=== PATIENT | male | born 1995 | race Caucasian/White ===

== ENCOUNTER 2016-07-09 16:39 | Emergency (ER) | payer OTHER ==
[~2016-07-09] VITALS: Ht 190.5 cm; Wt 77.1 kg
[2016-07-09 16:47] VITALS: BP 135/79
--- NOTE | 2016-07-09 17:57 | ED HAND/WRIST INJURY COMPLAINT ---
See Addendum History of Present Illness General Chief Complaint: Hand or Wrist Injury Stated Complaint: RT FINGER INJURY AT WORK Source: patient Exam Limitations: no limitations Vital Signs & Intake/Output Vital Signs & Intake/Output Vital Signs Date Time Temp Pulse Resp B/P Pulse O2 O2 Flow FiO2 Ox Delivery Rate 07/09 1647 97.7 88 20 135/79 98 Room Air Room Air Allergies Coded Allergies: NO KNOWN ALLERGIES (10/15/11) Triage Note: PT TO ED S/P "I SLICED BY KNUCKLE AT WORK". BANDAIDE INTACT TO LEFT INDEX FINGER. Triage Nurses Notes Reviewed? yes Duration: hour(s):, constant, continues in ED Timing: recent history Injury Environment: work No Modifying Factors: none HPI: 20-year-old male comes into the emergency room for further evaluation of laceration to right index finger. Patient cut it on a piece of metal at work earlier today around 11 AM. Last tetanus shot unknown. Denies any numbness or tingling. Denies any other associated symptoms at this time. Patient comes into emergency room for further evaluation. (GAMLA BLACKMON) Past History Travel History Traveled to [place] past 21 day No Medical History Any Pertinent Medical History? see below for history Neurological: NONE EENT: NONE Cardiovascular: NONE Respiratory: NONE Gastrointestinal: NONE Hepatic: NONE Renal: NONE Musculoskeletal: NONE Psychiatric: NONE Endocrine: NONE Blood Disorders: NONE Cancer(s): NONE MANAGER MEAT/Reproductive: NONE Surgical History Surgical History: non-contributory Psychosocial History What is your primary language Ethiopian Tobacco Use: Never used ETOH Use: denies use Illicit Drug Use: denies illicit drug use Family History Hx Contributory? No (GAMAL BLACKMON) Review of Systems Review of Systems Constitutional: Reports: no symptoms. EENTM: Reports: no symptoms. Respiratory: Reports: no symptoms. Cardiovascular: Reports: no symptoms. GI: Reports: no symptoms. Genitourinary: Reports: no symptoms. Musculoskeletal: Reports: see HPI. Skin: Reports: see HPI. Neurological/Psychological: Reports: no symptoms. Hematologic/Endocrine: Reports: no symptoms. Immunologic/Allergic: Reports: no symptoms. All Other Systems: Reviewed and Negative (GAMAL BLACKMON) Physical Exam Physical Exam General Appearance: well developed/nourished, mild distress Head: atraumatic Eyes: Bilateral: normal appearance. Ears, Nose, Throat: normal ENT inspection, hearing grossly normal Neck: normal inspection Cardiovascular/Respiratory: no respiratory distress Back: normal inspection Hand Left: normal inspection Hand Right: 2nd finger, superficial laceration over knuckle, skin well approximated, no active bleeding, Neurologic/Tendon: normal sensation, normal motor functions, normal tendon functions, responds to pain, no evidence tendon injury, no pulse deficit Skin: intact, normal color, warm/dry Lymphatic: no anterior cervical monika (GAMAL BLACKMON) Progress Differential Diagnosis: abscess, cellulitis, contusion, dislocation, fracture, gout, paronychia, septic arthritis, tenosynovitis Plan of Care: Current Medications Sig/Eliud Start time Last Medication Dose Stop Time Status Admin Tetanus/Diphtheria 0.5 ML ONCE ONE 07/09 1800 UNVr Toxoids Adsorbed 07/09 1801 (Decava) Departure Departure Disposition: HOME OR SELF CARE Condition: Stable Clinical Impression Primary Impression: Finger laceration Referrals: ROMY JONAS,SIDNEY Horta (PCP/Family) Additional Instructions: Stay in splint for 10 days. Change dressing every other day. Try not to bend the finger. Watch for signs of infection such as redness swelling discharge fever chills. Departure Forms: Customer Survey Employee Industrial Accident General Discharge Information (GAMAL BLACKMON) PA/DISHWASHER PREPARER Co-Sign Statement Statement: ED Attending supervision documentation- [] I saw and evaluated the patient. I have also reviewed all the pertinent lab results and diagnostic results. I agree with the findings and the plan of care as documented in the PA's/DISHWASHER PREPARER's documentation. [X] I have reviewed the ED Record and agree with the PA's/DISHWASHER PREPARER's documentation. [] Additions or exceptions (if any) to the PAs/DISHWASHER PREPARER's note and plan are summarized below: [] (ROLANDO MATHIAS DO) Procedures Laceration/Wound Repair Progress: superficial laceration over right index finger, skin well approximated, no active bleeding, no separation of skin, irrigated with peroxide and saline, Dermabond use, dry dressing, finger splint placed, patient tolerated procedure well, (GAMAL BLACKMON)
== END 2016-07-09 18:23 ==
LOC: ERH 16:39
DX: S61.210A Laceration without foreign body of right index finger without damage to nail, initial encounter (principal); W45.8XXA Other foreign body or object entering through skin, initial encounter
CPT/HCPCS: 90471; 90714

== ENCOUNTER 2016-08-20 16:07 | Emergency (ER) | payer OTHER ==
[~2016-08-20] VITALS: Ht 190.5 cm; Wt 77.1 kg
--- NOTE | 2016-08-20 17:21 | ED GI/GU/ABDOMINAL COMPLAINT ---
History of Present Illness General Chief Complaint: Abdominal Pain/Flank Pain Stated Complaint: MID ABD PAIN.. Source: patient Exam Limitations: no limitations Vital Signs & Intake/Output Vital Signs & Intake/Output Vital Signs Date Time Temp Pulse Resp B/P Pulse O2 O2 Flow FiO2 Ox Delivery Rate 08/20 1923 95.7 83 16 128/74 100 Room Air 08/20 1754 Room Air Room Air 08/20 1632 99.3 84 18 113/72 95 Room Air Allergies Coded Allergies: NO KNOWN ALLERGIES (10/15/11) Reconcile Medications Ondansetron HCl (Zofran) 4 MG TABLET 1 TAB PO Q6-8P PRN NAUSEA Triage Note: RECEIVED 20 YO MALE SENT BY DR BONNER FOR R/O APPENDICITIS. PT SENT FOR U/S. PT REPORTS MID TO LOWER ABDOMINAL PAIN SINCE THURSDAY, + NAUSEA. WBC 12.6 Triage Nurses Notes Reviewed? yes Timing: recent history Severity Numbers: 3 Location: right lower quadrant Radiation: no radiation Activities at Onset: none HPI: Patient is a 20-year-old male with an unremarkable past medical history presents to emergency room stating that 4 days ago patient had a gradual onset of generalized abdominal pain and was pain significantly worsened today or patient has now become nauseous Patient's pain currently is periumbilical with radiation to the right lower quadrant patient was seen by administrative assistant data entry and was advised to present to emergency room for rule out appendicitis the state the patient's white blood cell count was 12.6 thousand. Patient states that eating and drinking makes symptoms worse. Patient does state that he is a significant every other day and said user for headaches. \ last bowel movement was today no blood no melena noted. Past History Travel History Traveled to [place] past 21 day No Medical History Any Pertinent Medical History? none Neurological: NONE EENT: NONE Cardiovascular: NONE Respiratory: NONE Gastrointestinal: NONE Hepatic: NONE Renal: NONE Musculoskeletal: NONE Psychiatric: NONE Endocrine: NONE Blood Disorders: NONE Cancer(s): NONE PUBLISHER ASSISTANT/Reproductive: NONE Tetanus Vaccine: 07/09/16 Surgical History Surgical History: non-contributory Psychosocial History What is your primary language [place] Tobacco Use: Never used Family History Hx Contributory? No Review of Systems Review of Systems Constitutional: Reports: no symptoms. EENTM: Reports: no symptoms. Respiratory: Reports: no symptoms. Cardiovascular: Reports: no symptoms. GI: Reports: see HPI, abdominal pain. Genitourinary: Reports: no symptoms. Musculoskeletal: Reports: no symptoms. Skin: Reports: no symptoms. Neurological/Psychological: Reports: no symptoms. Hematologic/Endocrine: Reports: no symptoms. Immunologic/Allergic: Reports: no symptoms. All Other Systems: Reviewed and Negative Physical Exam Physical Exam General Appearance: no apparent distress, alert Gastrointestinal: normal bowel sounds, soft, MILD RIGHT LOWER QUADRANT POINT TENDERNESS NO REBOUND TENDERNESS NO RIGHT UPPER QUADRANT PAIN NO PERITONEAL SIGNS Comments: Well-developed well-nourished person in no acute distress HEENT: Normal EENT exam, Neck: Supple, no lymphadenopathy, normal range of motion without pain or tenderness Back: Nontender, no CVA tenderness. Cardiovascular: Regular rate and rhythms no murmurs rubs or gallops, normal JVP Respiratory: Chest nontender. No respiratory distress.breath sounds clear to auscultation bilaterally Abdomen: Soft, nondistended, no appreciable organomegaly. Normal bowel sounds. No ascites Extremity: No edema, no calf tenderness to palpation, normal and equal pulses. Neuro: Alert oriented x3, motor sensory normal, Skin: No appreciable rash on exposed skin, skin is warm and dry. Psych: Mood and affect is normal, memory and judgment is normal. Core Measures ACS in differential dx? No Severe Sepsis Present: No Septic Shock Present: No Progress Differential Diagnosis: AAA, AMI, appendicitis, biliary colic, bowel obstruction , colon cancer, cholecystitis, diverticulitis, epididymitis, esophageal varices, gastritis, hepatitis, hernia, hemorrhoids, ischemic bowel, inflamm bowel dis, orchitis, pancreatitis, prostatitis, peptic ulcer, PUD/GERD, perforated viscous, pyelonephritis, SBO, testicular torsion, ureterolithiasis, urinary retention, urethritis, UTI/pyelo Plan of Care: Orders Procedure Date/time Status LIPASE 08/20 1735 Complete LACTIC ACID 08/20 173 Complete COMPREHENSIVE METABOLIC PANEL 08/20 1734 Complete CBC WITHOUT DIFFERENTIAL 08/20 1734 Complete AMYLASE 08/20 173 Complete Laboratory Tests 08/20/16 2035: Lactic Acid Cancelled 08/20/16 1750: Anion Gap 12, Estimated GFR > 60, BUN/Creatinine Ratio 13.3, Glucose 84, Lactic Acid 0.6 L, Calcium 9.7, Total Bilirubin 0.9, AST 21, ALT 35, Alkaline Phosphatase 75, Total Protein 7.7, Albumin 4.8, Globulin 2.9, Albumin/Globulin Ratio 1.7, Amylase 60, Lipase 45, CBC w Diff NO MAN DIFF REQ, RBC 4.77, MCV 87.0 , MCH 30.9, RDW 12.4, MPV 9.1, Gran % 76.4 H, Lymphocytes % 15.2 L, Monocytes % 7.7, Eosinophils % 0.5, Basophils % 0.2, Absolute Granulocytes 7.9 H, Absolute Lymphocytes 1.6, Absolute Monocytes 0.8 H, Absolute Eosinophils 0.1, Absolute Basophils 0, PUBS MCHC 35.5 Patient declines pain medications when offered Patient on initial examination looks well no apparent distress Blood work is unremarkable CT scan was unremarkable patient was able tolerate by mouth Upon discharge patient looks well no apparent distress and will comply with discharge instructions and had no questions (NAHED HODGE,WENDY) Diagnostic Imaging: Viewed by Me: CT Scan. Radiology Impression: no acute abnormality Initial ED EKG: none Comments: PATIENT: TITO CAMPUZANO PRESENT AGE: 20 PATIENT ACCOUNT NO: [id number] : 95 LOCATION: [facility] ORDERING PHYSICIAN: WENDY HODGE SERVICE DATE: 08/20/16 EXAM TYPE: CAT - CT ABD & PELVIS W IV CONTRAST EXAMINATION: CT ABDOMEN AND PELVIS WITH CONTRAST CLINICAL INFORMATION: Right lower quadrant abdominal pain. COMPARISON: None. TECHNIQUE: Multidetector volumetric imaging was performed of the abdomen and pelvis before and after the IV administration of 94 mL of Optiray 320 intravenous contrast. Sagittal and coronal reformatted images were obtained on the technologist's workstation. DLP: 303 mGy-cm FINDINGS: LUNG BASES: The visualized lung bases are unremarkable. LIVER, GALLBLADDER, AND BILIARY TREE: The liver is normal in size, shape, and attenuation. No focal hepatic lesion or biliary ductal dilatation is present. The gallbladder is unremarkable with no evidence of radiopaque gallstones, gallbladder wall thickening, or obvious pericholecystic inflammatory changes. PANCREAS: Unremarkable. SPLEEN: Unremarkable. ADRENAL GLANDS: Unremarkable. KIDNEYS AND URETERS: The kidneys are normal in size, shape, and attenuation. No hydronephrosis, hydroureter, or calculi seen. No perinephric stranding. BLADDER: Unremarkable. GASTROINTESTINAL TRACT: Normal anatomic orientation of the stomach relative to the duodenum. Normal caliber of abdominal and pelvic bowel loops, without evidence of obstruction or ileus. No circumferential bowel wall thickening with surrounding inflammatory changes to suggest an underlying infectious or inflammatory enterocolitis. Normal-appearing appendix within the right lower quadrant of the abdomen. No organizing intra-abdominal fluid collections or free intraperitoneal air. ABDOMINAL WALL: No significant hernia is appreciated. LYMPH NODES: Mildly prominent lymph nodes within the right hemiabdomen as well as at the root of the mesentery. This lymph nodes are entirely nonspecific and are visualized measuring up to 1 cm in short axis dimension within the right lower quadrant of the abdomen. VASCULAR: Patent abdominal vasculature. Normal course and caliber of the abdominal aorta and its branching vessels, without aneurysmal dilatation. PELVIC VISCERA: Unremarkable. OSSEOUS STRUCTURES: No acute osseous abnormality. Normal alignment of the imaged thoracolumbar spine. No visible destructive osseous lesions. IMPRESSION: No acute findings within the abdomen or pelvis to explain patient symptomatology. A normal-appearing appendix is present within the right lower quadrant of the abdomen. The terminal ileum appears unremarkable. There are mildly prominent lymph nodes within the right lower quadrant of the abdomen as well as at the root of the mesentery, measuring up to 1 cm in short axis dimension. These lymph nodes are entirely nonspecific. Departure Departure Disposition: HOME OR SELF CARE Condition: Stable Clinical Impression Primary Impression: Abdominal pain Secondary Impressions: Mesenteric adenitis Referrals: RUFUS JONAS,YVAN STANTON MD,SIDNEY Horta (PCP/Family) Additional Instructions: As discussed begin [id number] ibuprofen for pain and inflammation. Begin the prescription Zofran for nausea if needed. Begin a 24-hour clear liquid diet to rest bowels. If symptoms worsen return to emergency room. Prescription is waiting at [facility] pharmacy. If no better in 2 days follow-up with peripheral edp equipment operator Departure Forms: Customer Survey General Discharge Information Prescriptions: Current Visit Scripts Ondansetron HCl (Zofran) 1 TAB PO Q6-8P PRN NAUSEA #15 TAB
[2016-08-20 17:57] LABS: ABSOLUTE BASOPHIL COUNT 0 /CUMM (0.0-0.2); ABSOLUTE EOSINOPHIL COUNT 0.1 /CUMM (0.0-0.7); ABSOLUTE GRANULOCYTE CT 7.9 /CUMM (1.4-6.5); ABSOLUTE LYMPH COUNT 1.6 /CUMM (1.2-3.4); ABSOLUTE MONOCYTE COUNT 0.8 /CUMM (0.10-0.60); BASOPHIL % 0.2 % (0.0-2.0); EOSINOPHIL % 0.5 % (0-5); GRANULOCYTE % 76.4 % (42.2-75.2); HEMATOCRIT 41.5 % (42-52); MEAN CORPUSCULAR HGB 30.9 PG (27.0-31.0); MEAN CORPUSCULAR HGB CONC 35.5 G/DL (33.0-37.0); MEAN PLATELET VOLUME 9.1 FL (7.4-10.4); PLATELET COUNT 230 /CUMM (130-400); RBC DISTRIBUTION WIDTH 12.4 % (11.5-14.5); RED BLOOD CELL CT 4.77 /CUMM (4.70-6.10); WHITE BLOOD CELL COUNT 10.3 /CUMM (4.8-10.8)
--- NOTE | 2016-08-20 19:01 | CT SCAN REPORT ---
EXAMINATION: CT ABDOMEN AND PELVIS WITH CONTRAST CLINICAL INFORMATION: Right lower quadrant abdominal pain. COMPARISON: None. TECHNIQUE: Multidetector volumetric imaging was performed of the abdomen and pelvis before and after the IV administration of 94 mL of Optiray 320 intravenous contrast. Sagittal and coronal reformatted images were obtained on the technologist's workstation. DLP: 303 mGy-cm FINDINGS: LUNG BASES: The visualized lung bases are unremarkable. LIVER, GALLBLADDER, AND BILIARY TREE: The liver is normal in size, shape, and attenuation. No focal hepatic lesion or biliary ductal dilatation is present. The gallbladder is unremarkable with no evidence of radiopaque gallstones, gallbladder wall thickening, or obvious pericholecystic inflammatory changes. PANCREAS: Unremarkable. SPLEEN: Unremarkable. ADRENAL GLANDS: Unremarkable. KIDNEYS AND URETERS: The kidneys are normal in size, shape, and attenuation. No hydronephrosis, hydroureter, or calculi seen. No perinephric stranding. BLADDER: Unremarkable. GASTROINTESTINAL TRACT: Normal anatomic orientation of the stomach relative to the duodenum. Normal caliber of abdominal and pelvic bowel loops, without evidence of obstruction or ileus. No circumferential bowel wall thickening with surrounding inflammatory changes to suggest an underlying infectious or inflammatory enterocolitis. Normal-appearing appendix within the right lower quadrant of the abdomen. No organizing intra-abdominal fluid collections or free intraperitoneal air. ABDOMINAL WALL: No significant hernia is appreciated. LYMPH NODES: Mildly prominent lymph nodes within the right hemiabdomen as well as at the root of the mesentery. This lymph nodes are entirely nonspecific and are visualized measuring up to 1 cm in short axis dimension within the right lower quadrant of the abdomen. VASCULAR: Patent abdominal vasculature. Normal course and caliber of the abdominal aorta and its branching vessels, without aneurysmal dilatation. PELVIC VISCERA: Unremarkable. OSSEOUS STRUCTURES: No acute osseous abnormality. Normal alignment of the imaged thoracolumbar spine. No visible destructive osseous lesions. IMPRESSION: No acute findings within the abdomen or pelvis to explain patient symptomatology. A normal-appearing appendix is present within the right lower quadrant of the abdomen. The terminal ileum appears unremarkable. There are mildly prominent lymph nodes within the right lower quadrant of the abdomen as well as at the root of the mesentery, measuring up to 1 cm in short axis dimension. These lymph nodes are entirely nonspecific.
[2016-08-20 19:23] VITALS: BP 128/74
[2016-08-20] MEDS ORDERED: ZOFRAN4 M2 PO (19:48)
== END 2016-08-20 20:23 ==
LOC: ERH 16:07
PROVIDERS: Physician Assistant
DX: I88.0 Nonspecific mesenteric lymphadenitis (principal); R10.84 Generalized abdominal pain
CPT/HCPCS: 74177; 96374; J2405